=== PATIENT | female | born 1950 | race Caucasian/White ===

== ENCOUNTER 2017-12-20 11:16 | Outpatient (CLI) | payer BC | END 2017-12-20 11:17 | disposition home or self-care (01) | LOC: BICRAD 11:16 | PROVIDERS: ATTEND Internal Medicine Rheumatology | DX: M17.11 Unilateral primary osteoarthritis, right knee (principal); M25.551 Pain in right hip ==

== ENCOUNTER 2018-07-17 13:35 | Outpatient (CLI) | payer BC | END 2018-07-17 13:36 | disposition home or self-care (01) | LOC: BICMAMMO 13:35 | PROVIDERS: ATTEND Internal Medicine Medical Oncology | DX: R92.8 Other abnormal and inconclusive findings on diagnostic imaging of breast (principal); Z85.3 Personal history of malignant neoplasm of breast | CPT/HCPCS: 77066; G0279 ==

== ENCOUNTER 2018-09-05 13:26 | Outpatient (CLI) | payer BC ==
--- NOTE | 2018-09-05 15:34 | BD ---
Exam: DEXA Bone Density 09/05/18 HISTORY: Postmenopausal. FINDINGS: Lumbar Spine: BMD (g/cm2) T-Score Z-Score L1 0.813 -1.6 0.1 L2 0.841 -1.7 0.2 L3 0.887 -1.8 0.2 L4 0.845 -2 0.1 L1-L4 0.847 -1.8 0.1 Left Femoral Neck: 0.735 -1 0.6 Total Femur: 0.95 0.1 1.4 Impression: 1. Mild osteopenia of the lumbar spine and left femoral neck. 2. The ten year major osteoporotic risk fracture is 13% with ten year hip fracture risk of 1.3%. 1. POS: LULA
== END 2018-09-05 13:27 | disposition home or self-care (01) ==
LOC: BICMAMMO 13:26
PROVIDERS: ATTEND Internal Medicine
DX: M85.89 Other specified disorders of bone density and structure, multiple sites (principal)
CPT/HCPCS: 77080

== ENCOUNTER 2019-07-11 14:36 | Outpatient (CLI) | payer BC ==
--- NOTE | 2019-07-11 15:12 | MMO ---
Bilateral MAMMO Bilat Diag DDI+SEB. CLINICAL HISTORY: Patient is 69 years old and is seen for diagnostic exam. The patient has a history of Segmental mastectomy. procedure revealed invasive ductal right breast carcinoma in June, and Ultrasound guided core biopsy procedure revealed invasive ductal right breast carcinoma in May,. The patient has a history of right Lumpectomy in May, - malignant and right Ultrasound Guided Core Biopsy in April,. VIEWS: The views performed were: bilateral craniocaudal with tomosynthesis; bilateral mediolateral oblique with tomosynthesis; and bilateral mediolateral with tomosynthesis. FILMS COMPARED: The present examination has been compared to prior imaging studies performed at [facility] on 01/06/2016, 07/12/2016, 07/14/2017 and 07/17/2018. This study has been interpreted with the assistance of computer-aided detection. MAMMOGRAM FINDINGS: There are scattered fibroglandular densities. Finding 1: There are stable post operative changes seen in the right breast. Finding 2: There are stable benign appearing calcifications seen in both breasts. There are no suspicious masses, suspicious calcifications, or new areas of architectural distortion. IMPRESSION: THERE IS NO MAMMOGRAPHIC EVIDENCE OF MALIGNANCY. A ROUTINE FOLLOW-UP MAMMOGRAM IN 1 YEAR IS RECOMMENDED. THE RESULTS OF THIS EXAM WERE SENT TO THE PATIENT. ACR BI-RADS Category 2 - Benign finding MAMMOGRAPHY NOTE: 1. A negative mammogram report should not delay a biopsy if a dominant of clinically suspicious mass is present. 2. Approximately 10% to 15% of breast cancers are not detected by mammography. 3. Adenosis and dense breasts may obscure an underlying neoplasm. Reported by: JEZ LOPEZ MD Electonically Signed: [id number]
== END 2019-07-11 14:37 | disposition home or self-care (01) ==
LOC: BICMAMMO 14:36
DX: Z08 Encounter for follow-up examination after completed treatment for malignant neoplasm (principal); Z85.3 Personal history of malignant neoplasm of breast
CPT/HCPCS: 77066; G0279

== ENCOUNTER 2019-08-13 15:27 | Outpatient (CLI) | payer BC ==
--- NOTE | 2019-08-13 16:01 | BD ---
DEXA BONE DENSITOMETRY: (Dual energy x-ray absorptiometry) DATE: 08/13/2019 HISTORY: 69-year old white female for age-related, post-menopausal, osteoporosis screening. weight: 135 lbs height: 63 in. age of menopause: 36 COMPARISON: Most recent previous: 09/05/2018. Baseline:07/12/2005 FINDINGS: The bone mineral density (BMD) is given in grams per square centimeter (g/cm2): LUMBAR SPINE: BMD (g/cm^2) T score Z score L1: 0.813 -1.6 0.1 L2: 0.801 -2.1 -0.1 L3: 0.837 -2.2 -0.2 L4: 0.837 -2.0 0.1 Total: 0.823 -2.0 -0.1 Change in BMD compared to most recent previous DEXA: -2.9 %. Change in BMD compared to baseline DEXA: -17.3 %. HIP: BMD (g/cm^2) T score Z score Femoral neck: 0.800 -0.4 1.2 Total: 0.946 0.0 1.4 Change in BMD compared to most recent previous DEXA: -0.4 %. Change in BMD compared to baseline DEXA: -15.3 %. FRAX WHO fracture risk assessment tool: 10 year fracture risk* Major osteoporotic fracture: 7.6 % Hip fracture: 0.5 % Reported risk factors: [place] (), neck BMD = 0.800 (g/cm^2), BMI = 23.9. *Fracture probability is calculated for an untreated patient. Fracture probability may be lower if th e patient has received treatment. IMPRESSION: 1.) The mean bone mineral density of the lumbar spine is osteopenic. Fracture risk is increased. 2) The bone mineral density of the femoral neck is normal. Fracture risk is not increased.
== END 2019-08-13 15:28 | disposition home or self-care (01) ==
LOC: BICMAMMO 15:27
PROVIDERS: ATTEND Physician Assistant
DX: M85.88 Other specified disorders of bone density and structure, other site (principal)
CPT/HCPCS: 77080